=== PATIENT | female | born 1990 | race Two or more races ===

== ENCOUNTER 2024-09-13 15:36 | Outpatient (CLI) | payer OTHER | END 2024-09-13 15:47 | disposition home or self-care (01) | LOC: SONOGRAMA 15:36 | PROVIDERS: ATTEND Specialist | DX: O20.0 Threatened abortion (principal) ==

== ENCOUNTER → 2024-12-19 10:05 | Outpatient (CLI) | payer OTHER | END | disposition home or self-care (01) | LOC: PRENATAL 10:05 | PROVIDERS: ATTEND Obstetrics & Gynecology Maternal & Fetal Medicine | DX: O44.00 Complete placenta previa NOS or without hemorrhage, unspecified trimester (principal); O09.519 Supervision of elderly primigravida, unspecified trimester; Z3A.22 22 weeks gestation of pregnancy ==

== ENCOUNTER 2025-02-06 14:10 | Outpatient (CLI) | payer OTHER | END 2025-02-06 14:11 | disposition home or self-care (01) | LOC: PRENATAL 14:10 | PROVIDERS: ATTEND Obstetrics & Gynecology Maternal & Fetal Medicine | DX: O26.849 Uterine size-date discrepancy, unspecified trimester (principal); O09.519 Supervision of elderly primigravida, unspecified trimester; O99.019 Anemia complicating pregnancy, unspecified trimester; Z3A.29 29 weeks gestation of pregnancy ==

== ENCOUNTER 2025-03-17 14:23 | Outpatient (CLI) | payer OTHER | END 2025-03-17 14:24 | disposition home or self-care (01) | LOC: PRENATAL 14:23 | PROVIDERS: ATTEND Obstetrics & Gynecology Maternal & Fetal Medicine | DX: O26.849 Uterine size-date discrepancy, unspecified trimester (principal); O36.8199 Decreased fetal movements, unspecified trimester, other fetus; O09.519 Supervision of elderly primigravida, unspecified trimester; Z3A.35 35 weeks gestation of pregnancy ==

== ENCOUNTER 2025-04-23 02:09 | Inpatient (IN) | payer OTHER ==
[~2025-04-23] VITALS: Ht 160 cm; Wt 2.7 kg
[2025-04-23] MEDS ORDERED: PRENATAL TABLE1 EAC4 PO (02:13)
[2025-04-23] MEDS ORDERED: IRON236 MG PO (02:13)
[2025-04-23] MEDS ORDERED: RINGERS SOLUTION,LACTATED 1,000 ML IV SCH (02:15)
[2025-04-23 03:00] VITALS: BP 117/57
[2025-04-23 03:01] LABS: URINE APPEARANCE Turbid; URINE BILIRRUBIN Small (NEGATIVE); URINE BLOOD Moderate; URINE COLOR Red; URINE GLUCOSE Negative (NEGATIVE); URINE KETONE 15 (NEGATIVE); URINE LEUKOCYTE Moderate; URINE NITRATE Positive; URINE UROBILINOGEN 0.2 E.U./dl
[2025-04-23 03:04] LABS: URINE BACTERIA 1653.6 uL (0.0-1933); URINE EPITHELIAL CELLS 50.1 uL (0.0-38.8); URINE WBC 137.7 uL (0.0-23.2)
[2025-04-23 03:09] LABS: BASO % 0.3 % (0.1-1.2); EOS # 0.03 (0.04-0.54); EOS % 0.3 % (0.7-7.0); HEMATOCRIT 35.7 % (34.1-44.9); HEMOGLOBIN 12.5 g/dL (11.2-15.7); LYMPH % 6.8 % (19.3-53.1); MEAN CORPUSCULAR HEMOGLOBIN 32.1 pg (25.6-32.2); MONO # 0.62 (0.24-0.82); MONO % 5.3 % (4.7-12.5); NEUT # 10.18 (1.56-6.13); NEUT % 86.3 % (34.0-71.1); RED CELL DISTRIBUTION WIDTH 13.2 % (11.6-14.4)
[2025-04-23 03:12] LABS: PLATELET COUNT 124 K/uL (163-369)
[2025-04-23 03:21] LABS: INR < 0.93; PARTIAL THROMBOPLASTIN TIME 26.9 SECONDS (22.0-34.0); PROTHROMBIN TIME 10.2 SECONDS (9.0-11.5)
[2025-04-23 03:25] LABS: BILIRUBIN TOTAL 0.43 mg/dL (0.3-1.2); CALCIUM 8.5 mg/dL (8.5-10.1); CREATININE SERUM 0.48 mg/dL (0.55-1.02); GFR 147.18; GLOBULINA 3.3 G/DL (2.4-3.5); POTASSIUM 3.79 mEq/L (3.5-5.1); TOTAL PROTEIN 6.3 gm/dL (6.4-8.2)
[2025-04-23] MEDS ORDERED: OXYTOCIN 20 UNITS/1000ML RL PIGGYBAG IV ONE (03:26)
[2025-04-23] MEDS ORDERED: CHLORHEXIDINE GLUCONATE 120 ML BOTTLE TOP ONE (03:26)
[2025-04-23] MEDS ORDERED: ERYTHROMYCIN BASE OPHT 1GM EACH TUBE OP ONE ×2 (03:26→06:17)
[2025-04-23] MEDS ORDERED: LIDOCAINE HCL 1% 10ML VIAL ONE (03:26)
[2025-04-23 04:26] LABS: URINE CRYSTALS MODERATE /HPF; URINE PROTEIN 100 (NEGATIVE); URINE RBC > 10558.9 uL (0.0-20.8)
[2025-04-23] MEDS ORDERED: CEFAZOLIN SODIUM 1,000 MG VIAL ONE (06:14)
[2025-04-23] MEDS ORDERED: OXYTOCIN 10 UNITS/ML VIAL ONE (06:17)
[2025-04-23] MEDS ORDERED: CEFAZOLIN SODIUM 1,000 MG VIAL IV STA (06:46)
[2025-04-23] MEDS ORDERED: MORPHINE SULFATE 4 MG/ML CARTRIDGE IV PRN (08:30)
[2025-04-23] MEDS ORDERED: MORPHINE SULFATE 4 MG/ML VIAL IV ONE ×2 (09:15→09:45)
[2025-04-23] MEDS ORDERED: OxyCODONE HCL 5 MG TABLET (ROXICODONE) PO PRN (11:45)
[2025-04-23 12:22] VITALS: BP 111/68
[2025-04-23] MEDS ORDERED: CEFAZOLIN SODIUM 1,000 MG VIAL IV SCH (14:00)
[2025-04-23 16:31] VITALS: BP 96/60
[2025-04-24] VITALS: BP 92/60
[2025-04-24] MEDS ORDERED: ACETAMINOPHEN 500 MG GEL..CAP PO PRN (07:00)
[2025-04-24 07:13] LABS: BASO % 0.3 % (0.1-1.2); EOS # 0.07 (0.04-0.54); EOS % 0.6 % (0.7-7.0); HEMATOCRIT 29.9 % (34.1-44.9); LYMPH # 0.82 (1.18-3.74); LYMPH % 6.9 % (19.3-53.1); MEAN CORPUSCULAR HEMOGLOBIN 31.6 pg (25.6-32.2); MONO # 0.81 (0.24-0.82); MONO % 6.8 % (4.7-12.5); NEUT # 10.15 (1.56-6.13); NEUT % 84.9 % (34.0-71.1); RED BLOOD COUNT 3.16 M/uL (3.93-5.22); RED CELL DISTRIBUTION WIDTH 13.4 % (11.6-14.4)
[2025-04-24 07:21] LABS: PLATELET COUNT 119 K/uL (163-369)
[2025-04-24 08:06] VITALS: BP 98/59
[2025-04-24 12:33] VITALS: BP 90/60
[2025-04-24 17:06] VITALS: BP 109/63
[2025-04-25 01:00] VITALS: BP 102/63
[2025-04-25 08:49] VITALS: BP 100/63
[2025-04-25 16:41] VITALS: BP 103/63
[2025-04-25 17:11] LABS: BASO % 0.1 % (0.1-1.2); EOS # 0.01 (0.04-0.54); EOS % 0.1 % (0.7-7.0); HEMATOCRIT 36.6 % (34.1-44.9); LYMPH # 0.65 (1.18-3.74); LYMPH % 4.6 % (19.3-53.1); MEAN CORPUSCULAR HEMOGLOBIN 32.4 pg (25.6-32.2); MONO # 0.63 (0.24-0.82); MONO % 4.4 % (4.7-12.5); NEUT # 12.81 (1.56-6.13); NEUT % 90.3 % (34.0-71.1); PLATELET COUNT 137 K/uL (163-369); RED CELL DISTRIBUTION WIDTH 14.6 % (11.6-14.4)
[2025-04-26 00:07] VITALS: BP 98/56
[2025-04-26 09:07] VITALS: BP 97/66
[2025-04-26 16:00] VITALS: BP 118/67
== END 2025-04-26 16:36 | disposition home or self-care (01) | DRG 788 ==
LOC: LDR 02:09 → OB/GYN 02:09 → O/R 08:26 → OB/GYN 08:51
PROVIDERS: ADMIT Specialist; ATTEND Specialist
PROC: 4A1HXCZ Monitoring of Products of Conception, Cardiac Rate, External Approach (ICD-10-PCS; 2025-04-23)
PROC: 10D00Z1 Extraction of Products of Conception, Low, Open Approach (ICD-10-PCS; principal; 2025-04-23 07:00)
DX: O32.3XX0 Maternal care for face, brow and chin presentation, not applicable or unspecified (principal); Z37.0 Single live birth; Z3A.39 39 weeks gestation of pregnancy